=== PATIENT | female | born 1990 | race Caucasian/White ===

== ENCOUNTER 2017-04-27 11:35 | Emergency (ER) | payer SELFPAY ==
[2017-04-27 12:08] VITALS: BP 156/108
[2017-04-27] MEDS ORDERED: DECADRON IM STA (16:38)
[2017-04-27] MEDS ORDERED: MOTRIN PO ONE (16:38)
--- NOTE | 2017-04-27 18:40 | Emergency Department Report ---
Entered by SHAUN GUARDADO, acting as scribe for ADILSON OWENS PA. HPI - General Chief Complaint: Sore Throat Time Seen by Provider: 04/27/17 16:05 - HPI HPI: 27 y/o female with no significant PMHx presents to the ED c/o a gradually worsening sore throat and swollen tonsils that began 2 days ago. Patient reports she had an upper respiratory infection that subsided 2 days with taking DayQuil prior to onset of sore throat. Rates sore throat a 10/10 in severity, which she describes as aching in quality. Aggravated with swallowing and alleviated with nothing. Associated symptoms includes mild congestion, rhinorrhea, right ear pain, right facial pain, fever, and chills, but she denies difficulty swallowing, drooling, nausea, vomiting, headache, dizziness, chest pain, and SOB. Denies any sick contacts with people with strep throat. Took Tylenol with no relief. NKDA. ED Past Medical Hx - Past Medical History Previous Medical History?: No - Surgical History Past Surgical History?: No - Family History Family history: no significant - Social History Smoking Status: Never Smoker Substance Use Type: None - Medications Home Medications: Home Medications Medication Instructions Recorded Confirmed Last Taken Type Ibuprofen [Motrin] 600 mg PO Q8H PRN #12 tablet 04/27/17 Unknown Rx Penicillin Vk [Veetids TAB] 2 tab-cap PO Q8H #60 tablet 04/27/17 Unknown Rx ED Review of Systems ROS: Stated complaint: THROAT FEELS LIKE CLOSING UP Other details as noted in HPI Comment: All other systems reviewed and negative Constitutional: chills, fever (low-grade). denies: diaphoresis, malaise, weakness Eyes: denies: eye pain, eye discharge, vision change ENT: ear pain (right), throat pain, congestion, other (rhinorrhea). denies: dental pain, hearing loss, epistaxis Respiratory: denies: cough, orthopnea, shortness of breath, SOB with exertion, SOB at rest, stridor, wheezing Cardiovascular: denies: chest pain, palpitations, dyspnea on exertion, orthopnea , edema, syncope, paroxysmal nocturnal dyspnea Endocrine: no symptoms reported Gastrointestinal: denies: abdominal pain, nausea, vomiting, diarrhea, constipation, hematemesis Genitourinary: denies: urgency, dysuria, frequency, discharge Musculoskeletal: denies: back pain, joint swelling, arthralgia Skin: denies: rash, lesions Neurological: denies: headache, weakness, numbness, paresthesias, confusion, abnormal gait, vertigo Physical Exam - Physical Exam Vital Signs: Vital Signs 04/27/17 12:04 Temperature 99.5 F Pulse Rate 90 Respiratory 18 Rate Blood Pressure 156/108 O2 Sat by Pulse 100 Oximetry General: General: well nourished, well developed, 27 year old female in no acute distress and nontoxic in appearance Physical Exam: Head: Normocephalic, atraumatic Mouth: Moist mucus membranes. Uvula is midline and oral airway is patent. No facial swelling. No peritonsillar abscesses. Pharyngeal erythema with exudates and swelling noted. Tongue normal Oral airway is patent. Nose: Normal external appearance, no drainage. Maxillary and frontal sinuses nontender to palpation Neck: Supple, no C-spine tenderness, no tracheal deviation. Tender to palpate on sides of neck. Cervical adenopathy present. Ears: Bilateral TMs ar without any redness, swelling, or drainage. Bilateral EAC without any redness, swelling, or drainage. Abdomen: Soft, nontender to palpation in all quadrants, normal bowel sounds in all quadrants and negative CVA tenderness bilaterally. Eyes: Bilateral pupils equal and reactive to light, bilateral EOM intact. Bilateral sclera and conjunctiva without injection. Normal accommodation. Lungs: Clear to auscultation bilaterally. No wheezes, rhonchi, or rales noted. No accessory muscle use. No increased work of breathing. Extremities: No CCE. +2 pulses. No neurovascular compromise Cardiovascular: S1-S2, regular rate, regular rhythm. No murmurs. Skin: Clean, dry, and intact with no rash and no lesions Psych: Normal mood and behavior ED Course Vital Signs 04/27/17 12:04 Temperature 99.5 F Pulse Rate 90 Respiratory 18 Rate Blood Pressure 156/108 O2 Sat by Pulse 100 Oximetry BP 150/92 - Reevaluation(s) Reevaluation #1: 04/27/17 18:30 She given Decadron 10 mg IM and Motrin 800 mg when necessary emergency room for sore throats. ED Medical Decision Making - Lab Data Rapid strep test is Positive - Medical Decision Making ED course: Pt here reports sore throat. Strep test positive. Patient was given Decadron 10 mg IM and Motrin 800 mg in the emergency room for pain and to reduce swelling. He has no signs of peritonsillar abscess. Pt Also with elevated blood pressure without any history of hypertension. I discussed diagnosis and treatment plan the patient and she voiced understanding and and patient discharged home to follow up with her primary care in 2 days and if she does not have one she needs to follow up at [facility]. Diagnostic/labs: Rapid strep test positive Assessment/plan 1. Strep pharyngitis 2 elevated blood pressure without a history of hypertension Prescription for Pen-VK for 10 days, Motrin. He should to monitor blood pressure daily and keep a log and make appointment with her primary care or [facility] for follow-up elevated blood pressure. Started home in stable condition. Critical care attestation.: If time is entered above; I have spent that time in minutes in the direct care of this critically ill patient, excluding procedure time. ED Disposition Clinical Impression: Elevated blood pressure reading without diagnosis of hypertension, Strep pharyngitis Disposition: TO HOME OR SELFCARE Is pt being admited?: No Does the pt Need Aspirin: No Condition: Stable Instructions: Strep Throat (ED), Hypertension (ED) Additional Instructions: Your blood pressure was elevated in the emergency room today so please keep a log a few blood pressure and take to primary care visits with you and if you do not have a primary care he can follow up for [facility] Take antibiotic as prescribed. gargle with warm salt water and this will help with throat Motrin for pain at throat and for inflammation. Prescriptions: Ibuprofen [Motrin] 600 mg PO Q8H PRN #12 tablet PRN Reason: Pain Penicillin Vk [Veetids TAB] 2 tab-cap PO Q8H #60 tablet Referrals: PRIMARY CARE, [Primary Care Provider] - 04/29/17 [facility]– [place][Note 2] [Outside] - 04/29/17 Forms: Work/School Release Form(ED) This documentation as recorded by the DEBBY kelly JASMINE,accurately reflects the service I personally performed and the decisions made by me,ADILSON OWENS PA.
== END 2017-04-27 19:00 | disposition home or self-care (01) ==
LOC: ED 11:35
DX: J02.0 Streptococcal pharyngitis (principal); R03.0 Elevated blood-pressure reading, without diagnosis of hypertension
CPT/HCPCS: 87430; 96372; 99282; J1100